=== PATIENT | male | born 1965 | race Caucasian/White ===

== ENCOUNTER 2017-02-08 09:56 | Day surgery (SDC) | payer BC ==
[2017-02-05 14:37] VITALS: BMI 23.7
[~2017-02-08 09:56] MED LIST: HYDROmorphone 0.5 MG/0.5 ML SYRINGE IVP PRN; LACTATED RINGERS 1,000 ML IV SCH; ONDANSETRON 4 MG/2 ML VIAL IVP PRN
[2017-02-08 10:21] VITALS: RESP 16; TEMP 97
[2017-02-08] MEDS ORDERED: PROPOFOL 10 MG/ML 20 ML VIAL IV ONE (11:21)
--- NOTE | 2017-02-08 11:44 | P.PCN ---
Date of Procedure: 02/08/17 Procedure(s) Performed: BRIEF HISTORY: Patient is a 51-year-old pleasant white male, scheduled for an elective colonoscopy as a part of surveillance of long-standing history of ulcerative colitis diagnosed at age 21. He is in clinical remission. PROCEDURE PERFORMED: Colonoscopy with random biopsies. PREOPERATIVE DIAGNOSIS: Long-standing history of ulcerative colitis. IV sedation per Anesthesia. PROCEDURE: After informed consent was obtained, the patient, was brought into the endoscopy unit. IV sedation was administered by Anesthesia under continuous monitoring. Digital rectal examination was normal. Initially the Olympus CF- 160 flexible video colonoscope was then inserted in the rectum, gradually advanced into the cecum without any difficulty. Careful examination was performed as the scope was gradually being withdrawn. Ileocecal valve and the appendiceal orifice were visualized and appeared normal. Prep was excellent. Mucosa of the cecum, ascending colon, transverse colon, descending colon, sigmoid colon, and rectum appeared normal. Random hence he said done from the cecum to rectum to rule out dysplasia. Retroflexion was performed in the rectum and no lesions were seen. The patient tolerated the procedure well. IMPRESSION: Normal-appearing colon from rectum to cecum with no evidence of colorectal neoplasia. RECOMMENDATIONS: Findings of this examination were discussed with the patient as well as his family. He was advised to follow with the biopsy results. If the biopsy does not show any evidence of dysplasia,, he can have a repeat colonoscopy in 2 years..
[2017-02-08 12:25] VITALS: BP 104/60; PULSE 49
== END 2017-02-08 12:35 | disposition home or self-care (01) ==
LOC: ORWHC2ENDO 09:56
PROVIDERS: ATTEND Internal Medicine Gastroenterology
DX: K51.90 Ulcerative colitis, unspecified, without complications (principal); Z79.899 Other long term (current) drug therapy
CPT/HCPCS: 88305; 45380; J2704

== ENCOUNTER 2019-02-06 07:42 | Day surgery (SDC) | payer BC ==
[2019-01-29 11:25] VITALS: BMI 24.4
[~2019-02-06 07:42] MED LIST changes: -HYDROmorphone 0.5 MG/0.5 ML SYRINGE IVP PRN; +LIDOCAINE 1% 20 ML VIAL (10MG/ML) FOR IV START INTRADERMA PRN; -ONDANSETRON 4 MG/2 ML VIAL IVP PRN
[2019-02-06 08:04] VITALS: TEMP 97.6
[2019-02-06] MEDS ORDERED: PROPOFOL 10 MG/ML 20 ML VIAL IV ONE (08:42)
--- NOTE | 2019-02-06 09:08 | P.PCN ---
Date of Procedure: 02/06/19 Procedure(s) Performed: BRIEF HISTORY: Patient is a 53-year-old pleasant white male scheduled for an elective colonoscopy as a part of surveillance of long-standing history of ulcerative colitis diagnosed at age 20. He remains in clinical remission. Last colonoscopy was 2 years ago. PROCEDURE PERFORMED: Colonoscopy with random biopsies. PREOPERATIVE DIAGNOSIS: Long-standing history of ulcerative colitis/surveillance colonoscopy today. IV sedation per Anesthesia. PROCEDURE: After informed consent was obtained, the patient, was brought into the endoscopy unit. IV sedation was administered by Anesthesia under continuous monitoring. Digital rectal examination was normal. Initially the Olympus CF-160 flexible video colonoscope was then inserted in the rectum, gradually advanced into the cecum without any difficulty. Careful examination was performed as the scope was gradually being withdrawn. Ileocecal valve and the appendiceal orifice were visualized and appeared normal. Prep was excellent. Mucosa of the cecum, ascending colon, transverse colon, descending colon, sigmoid colon, and rectum appeared normal. Retroflexion was performed in the rectum and no lesions were seen. Random biopsies were done at every 10 cm from the rectum to the cecum to evaluate for dysplasia. The patient tolerated the procedure well. IMPRESSION: Normal-appearing colon from rectum to cecum with no evidence of colorectal neoplasia. RECOMMENDATIONS: Findings of this examination were discussed with the patient as well as his family. He was advised to follow with the biopsy results. If there is no evidence of dysplasia he can have a repeat colonoscopy in 2 years.
[2019-02-06 09:16] VITALS: RESP 16
[2019-02-06 09:38] VITALS: BP 112/76; PULSE 65
== END 2019-02-06 10:07 | disposition home or self-care (01) ==
LOC: ORWHC2ENDO 07:42
PROVIDERS: ATTEND Internal Medicine Gastroenterology
DX: Z12.11 Encounter for screening for malignant neoplasm of colon (principal); Z79.899 Other long term (current) drug therapy; K50.90 Crohn's disease, unspecified, without complications; Z98.890 Other specified postprocedural states
CPT/HCPCS: 88305; 45380; J2704

== ENCOUNTER 2021-02-08 09:35 | Day surgery (SDC) | payer BC ==
[2021-02-06 10:07] VITALS: BMI 27.6
[~2021-02-08 09:35] MED LIST changes: +LIDOCAINE 1% (10MG/ML) FOR IV START INTRADERMA PRN; -LIDOCAINE 1% 20 ML VIAL (10MG/ML) FOR IV START INTRADERMA PRN
[2021-02-08 10:02] VITALS: TEMP 98.4
[2021-02-08] MEDS ORDERED: PROPOFOL 10 MG/ML 20 ML VIAL IV ONE (11:10)
--- NOTE | 2021-02-08 11:26 | P.PCN ---
Date of Procedure: 02/08/21 Procedure(s) Performed: BRIEF HISTORY: Patient is a 55-year-old pleasant white male scheduled for an elective colonoscopy as a part of surveillance of long-standing history of ulcerative colitis diagnosed at age 21. He is in clinical remission. PROCEDURE PERFORMED: Colonoscopy with random biopsy. PREOPERATIVE DIAGNOSIS: Long-standing history of ulcerative colitis. IV sedation per Anesthesia. PROCEDURE: After informed consent was obtained, the patient, was brought into the endoscopy unit. IV sedation was administered by Anesthesia under continuous monitoring. Digital rectal examination was normal. Initially the Olympus CF-160 flexible video colonoscope was then inserted in the rectum, gradually advanced into the cecum without any difficulty. Careful examination was performed as the scope was gradually being withdrawn. Ileocecal valve and the appendiceal orifice were visualized and appeared normal. Prep was excellent. Mucosa of the cecum, ascending colon, transverse colon, descending colon, sigmoid colon, and rectum appeared normal. Biopsies were done at every 10 cm intervals from cecum to rectum to rule out dysplasia. Retroflexion was performed in the rectum and no lesions were seen. The patient tolerated the procedure well. IMPRESSION: Normal-appearing colon from rectum to cecum no evidence of active colitis or colorectal neoplasia . RECOMMENDATIONS: Findings of this examination were discussed with the patient as well as his family. He was advised to follow with the biopsy results. If the biopsies do not show any evidence of dysplasia, he can have a repeat colonoscopy in 2 years..
[2021-02-08 11:44] VITALS: BP 117/51; PULSE 62; RESP 16
== END 2021-02-08 11:57 | disposition home or self-care (01) ==
LOC: ORWHC2ENDO 09:35
PROVIDERS: ATTEND Internal Medicine Gastroenterology
DX: K51.90 Ulcerative colitis, unspecified, without complications (principal)
CPT/HCPCS: 45380; 88305

== ENCOUNTER → 2023-02-08 | Day surgery (SDC) | payer BC ==
[2023-02-06 10:36] VITALS: BMI 27.9
[~2023-02-08] MED LIST changes: +LACTATED RINGERS 1,000 ML IV ONE; -LIDOCAINE 1% (10MG/ML) FOR IV START INTRADERMA PRN; +PROPOFOL 10 MG/ML 20 ML VIAL IV ONE
[2023-02-08 11:34] VITALS: RESP 16; TEMP 97.8
--- NOTE | 2023-02-08 12:44 | P.PCN ---
Date of Procedure: 02/08/23 Procedure(s) Performed: BRIEF HISTORY: Patient is a 57-year-old pleasant whites male scheduled for an elective colonoscopy as a part of surveillance for colon cancer/long-standing history of ulcerative colitis diagnosed at age 21. He is maintained on mesalamine 4 tablets daily and remains in clinical remission PROCEDURE PERFORMED: Colonoscopy with biopsy. PREOPERATIVE DIAGNOSIS: Long-standing history of ulcerative colitis. IV sedation per Anesthesia. PROCEDURE: After informed consent was obtained, the patient, was brought into the endoscopy unit. IV sedation was administered by Anesthesia under continuous monitoring. Digital rectal examination was normal. Initially the Olympus CF-160 flexible video colonoscope was then inserted in the rectum, gradually advanced into the cecum without any difficulty. Careful examination was performed as the scope was gradually being withdrawn. Ileocecal valve and the appendiceal orifice were visualized and appeared normal. Prep was excellent. Mucosa of the cecum a minute a polyp that was removed by cold biopsy. Rest of the, ascending colon, transverse colon, descending colon, sigmoid colon, and rectum appeared normal. Biopsies were done from ascending colon to rectum at every 10 cm into well to rule out dysplasia Retroflexion was performed in the rectum and no lesions were seen. The patient tolerated the procedure well. IMPRESSION: 3-4 mm cecal polyp status post cold biopsy Rest of the colon appeared normal with no evidence of active colitis RECOMMENDATIONS: Findings of this examination were discussed with the patient as his family. He was advised to follow with the biopsy results. If the biopsy does not show any evidence of dysplasia he can have a repeat colonoscopy in 2 years.
[2023-02-08 13:35] VITALS: BP 149/88; PULSE 65
== END ==
LOC: ORWHC2ENDO 10:45
PROVIDERS: ATTEND Internal Medicine Gastroenterology
DX: D12.0 Benign neoplasm of cecum (principal); K51.90 Ulcerative colitis, unspecified, without complications; I25.10 Atherosclerotic heart disease of native coronary artery without angina pectoris; Z79.899 Other long term (current) drug therapy; Z87.19 Personal history of other diseases of the digestive system
CPT/HCPCS: 88305; 45380; J2704